=== PATIENT | female | born 1995 | race Caucasian/White ===

== ENCOUNTER → 2019-06-26 | Outpatient (CLI) | payer OTHER ==
[2019-06-26 16:18] LABS: A TYPE INFLUENZA AG NEGATIVE (NEGATIVE); B INFLUENZA AG NEGATIVE (NEGATIVE)
--- NOTE | 2019-06-26 18:40 | ER RDC ASSESSMENT REPORT ---
General - General Chief Complaint: Nonproductive Cough Stated Complaint: cough, fever Mode of Arrival: Ambulatory Information source: Patient Have you travelled within the last 14 days: No Do you have new or worsening respiratory symptoms?: Yes - HPI Patient complains to provider of: cough, fever Onset: Yesterday Onset/Duration: Gradual Pain Level: Denies Associated symptoms: Body/muscle aches, Chills, Nonproductive cough, Nausea, Rhinnorhea, Sore throat Exacerbated by: Coughing, Deep breathing Relieved by: Sitting, Remaining still Similar symptoms previously: No Recently seen / treated by doctor: No - Related Data Allergies/Adverse Reactions: latex Allergy (Verified 06/26/19 18:41) Home Medications: Synthroid 75 mcg once daily PO, Symbicort 160/4.5 BID, albuterol inhaler, duonebs Past Medical History - Social History Smoking Status: Never Smoker - Medical History Notes: asthma, hypotension, POTS, hypothyroidism - Past Medical History Cardiac Medical History: Reports: None Other: hypotension Pulmonary Medical History: Reports: Hx Asthma EENT Medical History: Reports: None Neurological Medical History: Reports: None Endocrine Medical History: Reports: Hx Hypothyroidism Renal/ Medical History: Reports: None Malignancy Medical History: Reports: None GI Medical History: Reports: Hx Gastroesophageal Reflux Disease, Hx Hiatal Hernia Musculoskeletal Medical History: Reports None Skin Medical History: Reports None Psychiatric Medical History: Reports: None Traumatic Medical History: Reports: None Infectious Medical History: Reports: None Physical Exam - Vital signs Vitals: HR 106, BP 122/76 SpO2 98% on RA Temp 98.6 Interpretation: Normal - General General appearance: Appears well In distress: None - HEENT Head: Normocephalic Eyes: Normal Conjunctiva: Normal Extraocular movements intact: Yes Eyelashes: Normal Pupils: PERRL Sinus: Normal Nasal: Clear rhinorrhea Mouth/Lips: Normal Mucous membranes: Normal, Moist Neck: Normal - Respiratory Respiratory status: No respiratory distress Chest status: Nontender, No pleuritic chest pain Breath sounds: Normal, Nonproductive cough - Cardiovascular Rhythm: Regular Heart sounds: Normal auscultation Pulses: Normal: Radial Normal capillary refill: Yes - Abdominal Inspection: Normal Distension: No distension Bowel sounds: Normal Tenderness: Nontender - Neurological Cognition: Normal Orientation: AAOx4 [place] Coma Scale Eye Opening: Spontaneous [place] Coma Scale Verbal: Oriented [place] Coma Scale Motor: Obeys Commands [place] Coma Scale Total: 15 Speech: Normal - Psychological Associated symptoms: Normal affect, Normal mood - Skin Skin Temperature: Warm Skin Moisture: Dry Skin Color: Normal Skin Turgor: Elastic Diagnostic Results Laboratory Results: 06/26/19 14:45 Throat Throat Culture - Pending Influenza A (Rapid) NEGATIVE (NEGATIVE) 06/26/19 14:41 Influenza B (Rapid) NEGATIVE (NEGATIVE) 06/26/19 14:41 Group A Strep Rapid NEGATIVE (NEGATIVE) 06/26/19 14:41 Patient Education/Counseling Counseling/Education: COVID counseling RDC Discharge - Discharge Condition: Stable Disposition: Home; Selfcare
== END ==
LOC: RDC 14:31
PROVIDERS: ATTEND Registered Nurse
DX: Z20.828 Contact with and (suspected) exposure to other viral communicable diseases (principal); J02.9 Acute pharyngitis, unspecified; R05 Cough; I95.9 Hypotension, unspecified; J45.909 Unspecified asthma, uncomplicated; E03.9 Hypothyroidism, unspecified; K21.9 Gastro-esophageal reflux disease without esophagitis; Z91.040 Latex allergy status
CPT/HCPCS: 87070; 87635; 87804; 87880